=== PATIENT | male | born 1985 | race Caucasian/White ===

== ENCOUNTER 2021-03-27 10:25 | Emergency (ER) | payer MEDICARE, MEDICAID ==
[~2021-03-27] VITALS: Ht 172.7 cm; Wt 68.0 kg
--- NOTE | 2021-03-27 10:44 | PHYS DOC ---
General Adult EDM: Chief Complaint: PSYCH EVALUATION HPI: HPI: Patient is a 35-year-old male who presents to the emergency department in PD custody. PD reports that patient was standing in the middle of the road waving his hands when a bystander called 911. Patient was requesting to go to [facility] but was refused by [facility] for his behaviors. Patient has been not necessarily aggressive towards EMS staff but is displaying erratic behavior. Per PD patient has a history of methamphetamine and PCP use. Patient denies any drug or alcohol use. He states that he wants to go to [facility] for his med refill. Patient is unable to tell me what medications he takes and for what. Patient states that his medications were for the [facility] and [employer]. Patient is alert and oriented to person place and situation. Patient has no complaints at this time. Patient is displaying erratic behavior and flailing around in the ER bed. PT is still at patient's bedside and security was called to assist the nurse in obtaining vital signs as patient at times is uncooperative with care. Review of Systems: Review of Systems: 14 body systems of the review of systems have been reviewed. See HPI for pertinent positive and negative responses, otherwise all other systems are negative, nonpertinent or noncontributory Heart Score: C/O Chest Pain: No Risk Factors: Risk Factors: DM, Current or recent (<one month) smoker, HTN, HLP, family history of CAD, obesity. Risk Scores: Score 0 - 3: 2.5% MACE over next 6 weeks - Discharge Home Score 4 - 6: 20.3% MACE over next 6 weeks - Admit for Clinical Observation Score 7 - 10: 72.7% MACE over next 6 weeks - Early Invasive Strategies Physical Exam: PE: Constitutional: Well developed, well nourished, no acute distress, non-toxic appearance. [] HENT: Normocephalic, atraumatic, bilateral external ears normal, oropharynx moist, no oral exudates, nose normal. [] Eyes: PERRL, EOMI, conjunctiva normal, no discharge. [] Neck: Normal range of motion, no stridor Cardiovascular:Heart rate tachycardic rhythm, no murmur [] Lungs & Thorax: Bilateral breath sounds clear to auscultation [] Abdomen: Bowel sounds normal, soft, no tenderness, no masses, no pulsatile masses. [] Skin: Warm, dry, no erythema, no rash, scratches noted to right arm that appear to be older in nature, scattered papules noted to patient's back and arms. [] Back: Normal range of motion Extremities: No tenderness, no cyanosis, no clubbing, ROM intact, no edema. [] Neurologic: Alert and oriented X 3, normal motor function, normal sensory function, no focal deficits noted. [] Psychologic: Erratic behavior, somewhat uncooperative with care, requires redirection Current Patient Data: Labs: Laboratory Tests Test 03/27/21 12:20 White Blood Count 8.4 x10^3/uL Red Blood Count 4.42 x10^6/uL Hemoglobin 11.8 g/dL Hematocrit 36.0 % Mean Corpuscular Volume 81 fL Mean Corpuscular Hemoglobin 27 pg Mean Corpuscular Hemoglobin Concent 33 g/dL Red Cell Distribution Width 16.3 % Platelet Count 458 x10^3/uL Neutrophils (%) (Auto) 67 % Lymphocytes (%) (Auto) 21 % Monocytes (%) (Auto) 8 % Eosinophils (%) (Auto) 2 % Basophils (%) (Auto) 1 % Neutrophils # (Auto) 5.6 x10^3/uL Lymphocytes # (Auto) 1.8 x10^3/uL Monocytes # (Auto) 0.7 x10^3/uL Eosinophils # (Auto) 0.2 x10^3/uL Basophils # (Auto) 0.1 x10^3/uL Sodium Level 138 mmol/L Potassium Level 4.2 mmol/L Chloride Level 100 mmol/L Carbon Dioxide Level 26 mmol/L Anion Gap 12 Blood Urea Nitrogen 24 mg/dL Creatinine 0.7 mg/dL Estimated GFR (Cockcroft-Gault) 127.6 BUN/Creatinine Ratio 34 Glucose Level 99 mg/dL Calcium Level 8.8 mg/dL Total Bilirubin 0.2 mg/dL Aspartate Amino Transf (AST/SGOT) 43 U/L Alanine Aminotransferase (ALT/SGPT) 38 U/L Alkaline Phosphatase 92 U/L Total Protein 7.0 g/dL Albumin 3.3 g/dL Albumin/Globulin Ratio 0.9 Ethyl Alcohol Level < 10 mg/dL Current Medications Medications (Trade) Dose Ordered Sig/Larry Route PRN Reason Start Time Stop Time Status Last Admin Dose Admin Sodium Chloride 1,000 ml @ 1,000 mls/hr 1X ONCE IV 03/27/21 10:45 03/27/21 11:44 DC 03/27/21 12:22 Ziprasidone (Geodon Im) 20 mg 1X ONCE IM 03/27/21 11:00 03/27/21 11:01 DC 03/27/21 11:02 Ziprasidone (Geodon Im) 20 mg STK-MED ONCE IM 03/27/21 10:56 03/27/21 10:57 DC Lorazepam (Ativan Inj) 2 mg 1X ONCE IM 03/27/21 12:15 03/27/21 12:16 DC 03/27/21 12:22 EKG: EKG: [] Radiology/Procedures: Radiology/Procedures: [] Course & Med Decision Making: Course & Med Decision Making Pertinent Labs and Imaging studies reviewed. (See chart for details) [] Patient presents to the emergency department for medical clearance for RSI transfer. Patient has no complaints at this time but was picked up by PD for standing in the middle the road flailing his arms. Patient reports he was a good RSI for medication refill but is unsure the medications that he takes. Per PD patient has a history of methamphetamine and PCP abuse although he denies any drug use. Patient's vital signs are stable at this time but he continues to have erratic behavior and is resistant to care. Work-up in the ER consisted of blood work and urinalysis for medical clearance. Patient to be evaluated by the psychiatric assessment team. Patient continues to display aggressive and erratic behavior. Patient is not cooperating with questioning and will not allow nursing care. Due to patient's threatening behavior towards himself and nursing staff, Geodon was ordered for patient. 1209: Eddie ojeda called for patient as he became aggressive towards ER staff again, medications ordered. 1513: Psychiatric assessment team at patient's bedside, patient is sleeping following medications and is unable to be evaluated by the psychiatric assessment team. Patient will be continue to be held in the emergency department for sobering in order to be evaluated at a later time. Patient's lab work is unremarkable, his UDS was positive for methamphetamines. His vital signs continue to be stable. 1852: I discussed patient's case with Neelam with the psychiatric assessment team and she will come in to reevaluate patient. 2012 : Patient is alert and oriented x4, he is eating and drinking normally and able to ambulate. Patient was evaluated by Neelam with the psychiatric assessm ent team and patient's leather case finisher was contacted to follow-up with him. Patient is medically cleared and appropriate for discharge with follow-up with his leather case finisher. I discussed with patient all findings and diagnostic testing as well as the need to follow-up with PCP for further evaluation and treatment or return to the ER if any new or worsening symptoms. Strict return precautions were also discussed at length. Patient voiced understanding and agreement with the plan. Patient is hemodynamically stable at the time of disposition. Dragon Disclaimer: Graematter Disclaimer: This electronic medical record was generated, in whole or in part, using a voice recognition dictation system. Departure Departure Impression: Primary Impression: Methamphetamine abuse Additional Impression: Encounter for psychiatric assessment Disposition: 01 HOME / SELF CARE / HOMELESS Condition: GOOD Patient Instructions: Drug Abuse, FAQs Additional Instructions: You were seen in the emergency department today for a psychiatric evaluation and methamphetamine use. Your vital signs have been stable, your work-up in the ER was unremarkable. You were evaluated by member of our psychiatric assessment team. Your leather case finisher has been contacted and they will follow up with you outpatient. Please return to [facility] as needed. Please discontinue methamphetamine use. Please return to the emergency department if you develop suicidal or homicidal ideation, chest pain, shortness of breath, or any new or worsening concerns. CHELLY ELMORE LURE MAKER Mar 27, 2021 10:44
[2021-03-27] MEDS ORDERED: IV NORMAL SALINE 1000ML BAG 1,000 ML IV ONE (10:45)
[2021-03-27] MEDS ORDERED: ZIPRASIDONE IM 20 MG VIAL. IM ONE ×2 (10:56→11:00)
--- NOTE | 2021-03-27 11:33 | NUR ---
Pt startled awake and became agitated when this tech attempted to attach pt to blood pressure cuff. Lorna NORRIS notified this tech is unable to obtain a full set of vital signs.
[2021-03-27 12:36] LABS: BASO # 0.1 x10^3/uL (0.0-0.2); BASO % 1 % (0-3); EOS # 0.2 x10^3/uL (0.0-0.7); EOS % 2 % (0-3); HEMOGLOBIN 11.8 g/dL (13.0-17.5); LYMPH # 1.8 x10^3/uL (1.0-4.8); LYMPH % 21 % (24-48); MEAN CORPUSCULAR HEMOGLOBIN 27 pg (25-35); MEAN CORPUSCULAR HGB CONC 33 g/dL (31-37); MEAN CORPUSCULAR VOLUME 81 fL (79-100); MONO # 0.7 x10^3/uL (0.0-1.1); MONO % 8 % (0-9); NEUT # 5.6 x10^3/uL (1.8-7.7); NEUT % 67 % (31-73); PLATELET COUNT 458 x10^3/uL (140-400); RED BLOOD COUNT 4.42 x10^6/uL (4.30-5.70); RED CELL DISTRIBUTION WIDTH 16.3 % (11.5-14.5); WHITE BLOOD COUNT 8.4 x10^3/uL (4.0-11.0)
[2021-03-27 12:48] LABS: CALCIUM 8.8 mg/dL (8.5-10.1); CREATININE 0.7 mg/dL (0.7-1.3); GFR 127.6; POTASSIUM 4.2 mmol/L (3.5-5.1)
[2021-03-27 12:53] LABS: ALBUMIN 3.3 g/dL (3.4-5.0); ALBUMIN/GLOBULIN RATIO 0.9 (1.0-1.7); TOTAL BILIRUBIN 0.2 mg/dL (0.2-1.0)
[2021-03-27 15:18] LABS: BILIRUBIN,URINE NEGATIVE (NEG); CLARITY,URINE CLEAR; COLOR,URINE YELLOW; NITRITE,URINE NEGATIVE (NEG); PH,URINE 6.5 (<5.0-8.0); PROTEIN,URINE NEGATIVE (NEG-TRACE); UROBILINOGEN,URINE 0.2 mg/dL (0.2 mg/dL)
[2021-03-27 15:25] LABS: BARBITURATES NEG (NEG); BENZODIAZEPINES NEG (NEG); CANNABINOIDS NEG (NEG); COCAINE NEG (NEG); METHADONE NEG (NEG); OPIATES NEG (NEG); PHENCYCLIDINE NEG (NEG)
[2021-03-27 15:29] LABS: BACTERIA,URINE 0 /HPF (0-FEW); RBC,URINE 0 /HPF (0-2); WBC,URINE 0 /HPF (0-4)
[2021-03-27 15:39] LABS: AMPHETAMINE/METHAMPHETAMINE POS (NEG)
[2021-03-27 18:05] VITALS: BP 99/57
== END 2021-03-27 20:54 | disposition home or self-care (01) ==
LOC: ER 10:25
DX: F15.10 Other stimulant abuse, uncomplicated (principal); Z00.8 Encounter for other general examination
CPT/HCPCS: 36415; 80053; 80307; 81001; 85025; 96360; 96372; 99284; G0480; J2060; J3486; J7030

== ENCOUNTER 2021-06-13 01:21 | Emergency (ER) | payer MEDICAID, MEDICARE ==
[~2021-06-13] VITALS: Ht 182.9 cm; Wt 68.1 kg
--- NOTE | 2021-06-13 01:23 | PHYS DOC ---
Past Medical History Additional Past Medical Histor: drug abuse, mental illness (SHILOH HERNANDEZ DO) Past Surgical History: Other Additional Past Surgical Histo: unknown (SHILOH HERNANDEZ DO) Smoking Status: Current Every Day Smoker Alcohol Use: Heavy Drug Use: Methamphetamine (SHILOH HERNANDEZ DO) General Adult EDM: Chief Complaint: General Complaint HPI: HPI: Patient is a 35 year old male brought in by EMS for reported headache. He also reports having right earache. He asked me multiple times to look in both of his ears. The patient appears to be intoxicated, mildly agitated. He is angered when asked questions about use of illicit drugs or alcohol. The patient has a history of alcoholism and methamphetamine use. He also has a history of mental illness, insinuates that he has bipolar disorder. He has been out of his psychotropic medications for "a while." He denies any actual headache pain after he arrives. He denies dizziness, nausea vomiting, photophobia. Denies chest pain, dyspnea, abdominal pain or nausea vomiting symptoms. (SHILOH HERNANDEZ DO) Review of Systems: Review of Systems: Constitutional: Denies fever or chills. [] Eyes: Denies change in visual acuity or photophobia. Denies vision loss. HENT: Denies nasal congestion or sore throat. Right earache Respiratory: Denies cough or shortness of breath. [] Cardiovascular: Denies chest pain or edema. [] GI: Denies abdominal pain, nausea, vomiting Musculoskeletal: Denies back pain or joint pain. [] Integument: Denies rash. [] Neurologic: Reportedly had a headache earlier, denies it at present. Denies weakness, syncope, fall, head injury. Psychiatric: Anxiety, chronic mood disturbance, denies SI or HI (SHILOH HERNANDEZ DO) Heart Score: C/O Chest Pain: No Risk Factors: Risk Factors: DM, Current or recent (<one month) smoker, HTN, HLP, family history of CAD, obesity. Risk Scores: Score 0 - 3: 2.5% MACE over next 6 weeks - Discharge Home Score 4 - 6: 20.3% MACE over next 6 weeks - Admit for Clinical Observation Score 7 - 10: 72.7% MACE over next 6 weeks - Early Invasive Strategies (SHILOH HERNANDEZ DO) Allergies: Allergies: Allergies Coded Allergies Type Severity Reaction Last Updated Verified Unable to Assess 03/27/21 No (SHILOH HERNANDEZ DO) Physical Exam: PE: Constitutional: Well developed, well nourished, no acute distress, non-toxic appearance. Disheveled, unkempt, appears older than stated age HENT: Normocephalic, atraumatic, oropharynx is patent and clear, mucous membranes are moist. There is evidence of right external ear canal swelling, maceration. TM is clear. Pinna is unremarkable in appearance. No mastoid tenderness or erythema. Findings are most consistent with otitis externa. Left TM is clear, left external canal and left pinna are all normal in appearance. Extremely poor dentition. Eyes: PERRL, EOMI, conjunctiva normal, no discharge. [] Neck: Normal range of motion, no tenderness, supple, no stridor. [] Cardiovascular:Heart rate regular rhythm Lungs & Thorax: Bilateral breath sounds clear to auscultation [] Abdomen: Bowel sounds normal, soft, no tenderness, no masses, no pulsatile masses. [] Skin: Warm, dry, no erythema, no rash. Multiple tattoos. Extremities: No tenderness, no cyanosis, no clubbing, ROM intact, no edema. [] Neurologic: Alert and oriented X 3, normal motor function, normal sensory function, no focal deficits noted. Ambulates with a steady gait. Psychologic: Affect is bizarre, speech is pressured, he manifests some mild psychomotor agitation. He denies SI or HI. (SHILOH HERNANDEZ DO) EKG: EKG: [] (SHILOH HERNANDEZ DO) Radiology/Procedures: Radiology/Procedures: [] (SHILOH HERNANDEZ DO) Course & Med Decision Making: Course & Med Decision Making Pertinent Labs and Imaging studies reviewed. (See chart for details) The patient is given a dose of oral Ativan and oral Benadryl. He is resting comfortably. He is given Cortisporin otic drops for his right ear. He has thus far refused to provide a urine sample. I spoke with Fernando from the PAT team, and he is very familiar with this patient. The patient had been sober for some time, but he relapsed about a year ago and has been using alcohol and methamphetamine. The patient will be seen by the PAT team this morning. Transfer of care to Dr. Mullins for disposition. (SHILOH HERNANDEZ DO) Course & Med Decision Making Patient was signed over to me with mental health assessment pending and lab studies pending. Patient was medically cleared and then evaluated by behavioral health. Our mental health professionals do not believe that he is at immediate risk and can be treated on outpatient basis. I agree with this. Patient has a appropriate follow-up and is stable for discharge at this time. (VANEC MULLINS MD) Dragon Disclaimer: Dragon Disclaimer: This electronic medical record was generated, in whole or in part, using a voice recognition dictation system. (SHILOH HERNANDEZ DO) Departure Departure Impression: Primary Impression: Encounter for psychiatric assessment Additional Impressions: Methamphetamine abuse Mood disorder Right otitis externa Qualified Codes: H60.501 - Unspecified acute noninfective otitis externa, right ear Disposition: 01 HOME / SELF CARE / HOMELESS Condition: STABLE Referrals: NO PCP (PCP) Patient Instructions: Mood Disorders SHILOH HERNANDEZ DO Jun 13, 2021 01:23 VANCE MULLINS MD Jun 13, 2021 13:17
[2021-06-13] MEDS ORDERED: diphenhydrAMINE HCL 25 MG CAPSULE PO ONE (02:00)
[2021-06-13] MEDS ORDERED: NEOMYCIN/POLYMYXIN/HC OTIC SUSPENSION 10ML BOTTLE. AD ONE (02:00)
[2021-06-13 02:42] LABS: BASO # 0.1 x10^3/uL (0.0-0.2); BASO % 1 % (0-3); EOS # 0.3 x10^3/uL (0.0-0.7); EOS % 5 % (0-3); HEMATOCRIT 33.7 % (39.0-53.0); HEMOGLOBIN 11.4 g/dL (13.0-17.5); LYMPH # 1.6 x10^3/uL (1.0-4.8); LYMPH % 31 % (24-48); MEAN CORPUSCULAR HEMOGLOBIN 26 pg (25-35); MEAN CORPUSCULAR HGB CONC 34 g/dL (31-37); MEAN CORPUSCULAR VOLUME 77 fL (79-100); MONO # 0.6 x10^3/uL (0.0-1.1); MONO % 12 % (0-9); NEUT # 2.6 x10^3/uL (1.8-7.7); NEUT % 51 % (31-73); PLATELET COUNT 237 x10^3/uL (140-400); RED BLOOD COUNT 4.36 x10^6/uL (4.30-5.70); RED CELL DISTRIBUTION WIDTH 14.9 % (11.5-14.5); WHITE BLOOD COUNT 5.1 x10^3/uL (4.0-11.0)
[2021-06-13 02:51] LABS: CALCIUM 7.8 mg/dL (8.5-10.1); CREATININE 0.7 mg/dL (0.7-1.3); GFR 127.6
[2021-06-13 02:57] LABS: ACETAMIN 2.3 mcg/ml (10-30); ETHANOL < 10 mg/dL (0-10); SALIC 1.1 mg/dL (2.8-20.0)
[2021-06-13 09:57] LABS: COLOR,URINE YELLOW
[2021-06-13 09:58] LABS: BILIRUBIN,URINE NEGATIVE (NEG); CLARITY,URINE CLEAR; NITRITE,URINE NEGATIVE (NEG); PH,URINE 7.5 (<5.0-8.0); PROTEIN,URINE NEGATIVE (NEG-TRACE); UROBILINOGEN,URINE 0.2 mg/dL (0.2 mg/dL)
[2021-06-13 09:59] LABS: BACTERIA,URINE 0 /HPF (0-FEW)
[2021-06-13 10:03] LABS: BARBITURATES NEG (NEG); BENZODIAZEPINES NEG (NEG); CANNABINOIDS POS (NEG); COCAINE NEG (NEG); METHADONE NEG (NEG); OPIATES NEG (NEG); PHENCYCLIDINE NEG (NEG)
[2021-06-13 10:04] LABS: AMPHETAMINE/METHAMPHETAMINE NEG (NEG)
[2021-06-13 10:52] VITALS: BP 115/81
== END 2021-06-13 13:29 | disposition home or self-care (01) ==
LOC: ER 01:21
DX: H60.501 Unspecified acute noninfective otitis externa, right ear (principal); F15.10 Other stimulant abuse, uncomplicated; F39 Unspecified mood [affective] disorder; R51.9 Headache, unspecified; F17.200 Nicotine dependence, unspecified, uncomplicated
CPT/HCPCS: 36415; 80048; 80307; 80329; 81001; 85025; 99285; G0480; Q0163

== ENCOUNTER 2021-08-11 17:00 | Inpatient (IN) | payer MEDICARE ==
[~2021-08-11] VITALS: Ht 182.9 cm; Wt 78.1 kg
[2021-08-11] MEDS ORDERED: VANCOMYCIN 1 GM in IV NORMAL SALINE 250ML 250 ML IV ONE (22:00)
[2021-08-11] MEDS ORDERED: IV NORMAL SALINE 1000ML BAG 1,000 ML IV SCH ×2 (22:00→23:00)
[2021-08-11] MEDS ORDERED: PIPERACILLIN/TAZOBACTAM 3.375 GM in IV NORMAL SALINE 50ML 50 ML IV ONE (22:57)
[2021-08-11] MEDS ORDERED: DIPHTH,PERTUSS(ACELL),TET TOX 0.5 ML DISP.SYRIN. VAX IM ONE (22:57)
[2021-08-12] MEDS ORDERED: DIPHTH,PERTUSS(ACELL),TET TOX 0.5 ML DISP.SYRIN. VAX IM ONE (03:16)
--- NOTE | 2021-08-12 05:25 | RAD ---
STUDY: CT head without contrast INDICATION: Altered mental status. COMPARISON: None. TECHNIQUE: Axial CT imaging through the head without the use of intravenous contrast. Sagittal and co rajan reformats were obtained. One or more of the following individualized dose reduction techniques were utilized for this examinat ion: 1. Automated exposure control 2. Adjustment of the mA and/or kV according to patient size 3. Use of iterative reconstruction technique. FINDINGS: Apparent cortical/subcortical low-attenuation along the right frontal lobe but suspected to be artifa ctual based off of the reformatted images and presence of streak artifact. No acute intracranial hemo rrhage. No localized mass effect, midline shift or hydrocephalus. Intact calvarium. The visualized mastoid air cells and paranasal sinuses are normally aerated. IMPRESSION: The study is degraded by patient motion and angulation within the gantry. This is suspected to accoun t for apparent cortical/subcortical low-attenuation along portions of the right frontal lobe (image 2 3 series 8). It is recommended that a repeat CT be performed when the patient can be appropriately po sitioned and remain still especially if there is persistent alteration in mental status. Electronically signed by: AMAN CARROLL MD (08/12/2021 5:23 AM) [facility]
[2021-08-12 05:31] VITALS: BP 114/63
--- NOTE | 2021-08-12 05:40 | NUR ---
Pt admitted to rm [id number] from ER. Pt only A, O to self and becomes very agitated if you try to wake him up to ask him questions. Unable to complete most admission assessments due to altered mental status at this time. Pt was incont of urine upon admission. Changed pt into pull up brief and changed linens after some agitation. Pt refusing to wear a gown at this time. Bed alarm on. Call light within reach. Will monitor.
[2021-08-12 07:00] VITALS: BP 107/55
[2021-08-12 07:06] LABS: BASO # 0.1 x10^3/uL (0.0-0.2); BASO % 1 % (0-3); EOS # 0.3 x10^3/uL (0.0-0.7); EOS % 5 % (0-3); HEMATOCRIT 34.1 % (39.0-53.0); HEMOGLOBIN 11.5 g/dL (13.0-17.5); LYMPH # 1.9 x10^3/uL (1.0-4.8); LYMPH % 31 % (24-48); MEAN CORPUSCULAR HEMOGLOBIN 27 pg (25-35); MEAN CORPUSCULAR HGB CONC 34 g/dL (31-37); MEAN CORPUSCULAR VOLUME 79 fL (79-100); MONO # 0.6 x10^3/uL (0.0-1.1); MONO % 10 % (0-9); NEUT # 3.4 x10^3/uL (1.8-7.7); NEUT % 54 % (31-73); PLATELET COUNT 251 x10^3/uL (140-400); RED CELL DISTRIBUTION WIDTH 15.7 % (11.5-14.5); WHITE BLOOD COUNT 6.3 x10^3/uL (4.0-11.0)
[2021-08-12 07:08] LABS: % EOS 5 % (0-5); % LYMPHS 31 % (24-48); % MONOS 10 % (0-10); % SEGS 54 % (35-66); PLT ESTIMATE ADEQUATE (ADEQUATE)
[2021-08-12 08:17] LABS: ALBUMIN 3.1 g/dL (3.4-5.0); ALBUMIN/GLOBULIN RATIO 0.9 (1.0-1.7); CALCIUM 8.4 mg/dL (8.5-10.1); CREATININE 0.7 mg/dL (0.7-1.3); GFR 126.9; MAGNESIUM 2.2 mg/dL (1.8-2.4); TOTAL BILIRUBIN 0.1 mg/dL (0.2-1.0); TOTAL PROTEIN 6.4 g/dL (6.4-8.2)
[2021-08-12 11:00] VITALS: BP 97/52
--- NOTE | 2021-08-12 11:00 | RAD ---
EXAMINATION: US BILATERAL LOWEREXTREMITY VENOUS DOPPLER, 08/11/2021 11:30 PM CLINICAL INDICATION: Cellulitis, abscess disease COMPARISON: None Available. PROCEDURE: Multiple grayscale, color Doppler and spectral Doppler sonographic images of the bilateral lower extremities were obtained. FINDINGS: There is no evidence of deep venous thrombosis in either lower extremity. The bilateral com mon femoral, femoral and popliteal veins are echolucent with normal flow on color Doppler imaging. Th e veins are fully compressible and show normal phasicity and reaction to augmentation. Visualized keira f veins are also normal in appearance. IMPRESSION: No evidence of deep venous thrombosis in either lower extremity. Electronically signed by: Clary Wagn MD (08/12/2021 10:58 AM) [id number]
--- NOTE | 2021-08-12 11:15 | NUR ---
pt sleeping this morning, woke up about 1100, bed alarm going off, pt sat back in bed agitated that we are in room, pt brief and edwige saturated in urine, informed pt that he was covered in urine and this RN is trying to remove wet stuff, he then realized that he had been incontinent and got angry. Pt speech very garbled. Pt escorted to bathroom, informed him that we needed a urine sample, he proceeded to urinate all over the wall and floor and then some in the toilet and would not give urine sample. Attempted to place new brief on pt, he refused and ambulated back to bed naked and went back to sleep. Bed alarm once again set
--- NOTE | 2021-08-12 11:16 | PDOC1 ---
History and Physical Date of Admission Date of Admission DATE: 08/12/21 TIME: 11:04 Identification/Chief Complaint Chief Complaint Abscess/cellulitis Source Source: Chart review History of Present Illness History of Present Illness Patient is a 36-year-old male with past medical history IV drug use, who presents to the ED with complaints of abscess to left dorsal wrist. History is limited due to uncooperative patient. At the time my evaluation he is very somnolent and not answering questions. Reportedly patient took 5 mg of Ativan before coming to the ED last night. Unknown length of time that his abscess has been present. In the ED he was treated with IV Zosyn and IV vancomycin. His labs on admission showed WBC 6.3, hemoglobin 11.5, hematocrit 34.1, AST 57, ALT 51. Urine toxicology showed ethyl alcohol 83. Imaging in the ED was largely unrevealing. He has an x-ray of the left arm with official read still pending. He has been admitted for further medical management. Past Medical History Past Medical History History IV drug use Past Surgical History Past Surgical History Unable to obtain due to uncooperative patient Family History Family History Unable to be obtained due to uncooperative patient Social History Smoke: 1 pack per day ALCOHOL: occassional Drugs: Crystal meth Current Problem List Problem List Problems Medical Problems: (1) Altered mental status Status: Acute (2) Cellulitis Status: Acute Current Medications Current Medications Current Medications Diphtheria/ Tetanus/Acell Pertussis (Boostrix) 0.5 ml STK-MED ONCE VAX IM ; Start 08/12/21 at 03:16; Stop 08/12/21 at 03:16; Status DC Sodium Chloride 1,000 ml @ 1,000 mls/hr Q1H IV ; Start 08/11/21 at 22:00; Stop 08/12/21 at 03:59; Status DC Sodium Chloride 1,000 ml @ 1,000 mls/hr Q1H IV ; Start 08/11/21 at 23:00; Stop 08/12/21 at 03:59; Status DC Vancomycin HCl 1 gm/Sodium Chloride 250 ml @ 250 mls/hr ONCE ONCE IV ; Start 08/11/21 at 22:00; Stop 08/12/21 at 03:59; Status DC Piperacillin Sod/ Tazobactam Sod 3.375 gm/Sodium Chloride 50 ml @ 100 mls/hr ONCE ONCE IV ; Start 08/11/21 at 22:57; Stop 08/12/21 at 04:01; Status DC Diphtheria/ Tetanus/Acell Pertussis (Boostrix) 0.5 ml ONCE ONCE VAX IM ; Start 08/11/21 at 22:57; Stop 08/12/21 at 04:01; Status DC Allergies Allergies: Coded Allergies: No Known Drug Allergies (Unverified , 06/13/21) ROS Review of System Unable to be obtained due to uncooperative patient Physical Exam Physical Exam General: Very lethargic, uncooperative. No acute distress HEENT: PERRLA, EOMI Lungs: Normal air movement Heart: RRR, no murmurs Cardiovascular: S1, S2 Abdomen: Normal bowel sounds, Soft, no masses Extremities: No clubbing, No cyanosis Skin: Roughly 3 cm abscess to left dorsal wrist, with surrounding erythema. Neuro: Normal speech, Normal tone, Sensation intact Psych/Mental Status: Still very somnolent Vitals Vitals Vital Signs Date Time Temp Pulse Resp B/P (MAP) Pulse Ox O2 Delivery O2 Flow Rate FiO2 08/12/21 08:00 Room Air 08/12/21 07:00 98.1 97 18 107/55 (72) 95 98.1 Labs Labs Laboratory Tests Test 08/11/21 23:00 08/12/21 01:15 Sodium Level 138 mmol/L (136-145) Potassium Level 4.0 mmol/L (3.5-5.1) Chloride Level 104 mmol/L (98-107) Carbon Dioxide Level 26 mmol/L (21-32) Anion Gap 8 (6-14) Blood Urea Nitrogen 13 mg/dL (8-26) Creatinine 0.7 mg/dL (0.7-1.3) Estimated GFR (Cockcroft-Gault) 126.9 BUN/Creatinine Ratio 19 (6-20) Glucose Level 103 mg/dL (70-99) Lactic Acid Level 1.9 mmol/L (0.4-2.0) Calcium Level 8.4 mg/dL (8.5-10.1) Magnesium Level 2.2 mg/dL (1.8-2.4) Total Bilirubin 0.1 mg/dL (0.2-1.0) Aspartate Amino Transf (AST/SGOT) 57 U/L (15-37) Alanine Aminotransferase (ALT/SGPT) 51 U/L (16-63) Alkaline Phosphatase 66 U/L (46-116) Troponin I High Sensitivity 5 ng/L (4-75) Total Protein 6.4 g/dL (6.4-8.2) Albumin 3.1 g/dL (3.4-5.0) Albumin/Globulin Ratio 0.9 (1.0-1.7) Ethyl Alcohol Level 83 mg/dL (0-10) White Blood Count 6.3 x10^3/uL (4.0-11.0) Red Blood Count 4.30 x10^6/uL (4.30-5.70) Hemoglobin 11.5 g/dL (13.0-17.5) Hematocrit 34.1 % (39.0-53.0) Mean Corpuscular Volume 79 fL (79-100) Mean Corpuscular Hemoglobin 27 pg (25-35) Mean Corpuscular Hemoglobin Concent 34 g/dL (31-37) Red Cell Distribution Width 15.7 % (11.5-14.5) Platelet Count 251 x10^3/uL (140-400) Neutrophils (%) (Auto) 54 % (31-73) Lymphocytes (%) (Auto) 31 % (24-48) Monocytes (%) (Auto) 10 % (0-9) Eosinophils (%) (Auto) 5 % (0-3) Basophils (%) (Auto) 1 % (0-3) Neutrophils # (Auto) 3.4 x10^3/uL (1.8-7.7) Lymphocytes # (Auto) 1.9 x10^3/uL (1.0-4.8) Monocytes # (Auto) 0.6 x10^3/uL (0.0-1.1) Eosinophils # (Auto) 0.3 x10^3/uL (0.0-0.7) Basophils # (Auto) 0.1 x10^3/uL (0.0-0.2) Segmented Neutrophils % 54 % (35-66) Lymphocytes % 31 % (24-48) Monocytes % 10 % (0-10) Eosinophils % 5 % (0-5) Platelet Estimate Adequate (ADEQUATE) Laboratory Tests Test 08/11/21 23:00 08/12/21 01:15 Sodium Level 138 mmol/L (136-145) Potassium Level 4.0 mmol/L (3.5-5.1) Chloride Level 104 mmol/L (98-107) Carbon Dioxide Level 26 mmol/L (21-32) Anion Gap 8 (6-14) Blood Urea Nitrogen 13 mg/dL (8-26) Creatinine 0.7 mg/dL (0.7-1.3) Estimated GFR (Cockcroft-Gault) 126.9 BUN/Creatinine Ratio 19 (6-20) Glucose Level 103 mg/dL (70-99) Lactic Acid Level 1.9 mmol/L (0.4-2.0) Calcium Level 8.4 mg/dL (8.5-10.1) Magnesium Level 2.2 mg/dL (1.8-2.4) Total Bilirubin 0.1 mg/dL (0.2-1.0) Aspartate Amino Transf (AST/SGOT) 57 U/L (15-37) Alanine Aminotransferase (ALT/SGPT) 51 U/L (16-63) Alkaline Phosphatase 66 U/L (46-116) Troponin I High Sensitivity 5 ng/L (4-75) Total Protein 6.4 g/dL (6.4-8.2) Albumin 3.1 g/dL (3.4-5.0) Albumin/Globulin Ratio 0.9 (1.0-1.7) Ethyl Alcohol Level 83 mg/dL (0-10) White Blood Count 6.3 x10^3/uL (4.0-11.0) Red Blood Count 4.30 x10^6/uL (4.30-5.70) Hemoglobin 11.5 g/dL (13.0-17.5) Hematocrit 34.1 % (39.0-53.0) Mean Corpuscular Volume 79 fL (79-100) Mean Corpuscular Hemoglobin 27 pg (25-35) Mean Corpuscular Hemoglobin Concent 34 g/dL (31-37) Red Cell Distribution Width 15.7 % (11.5-14.5) Platelet Count 251 x10^3/uL (140-400) Neutrophils (%) (Auto) 54 % (31-73) Lymphocytes (%) (Auto) 31 % (24-48) Monocytes (%) (Auto) 10 % (0-9) Eosinophils (%) (Auto) 5 % (0-3) Basophils (%) (Auto) 1 % (0-3) Neutrophils # (Auto) 3.4 x10^3/uL (1.8-7.7) Lymphocytes # (Auto) 1.9 x10^3/uL (1.0-4.8) Monocytes # (Auto) 0.6 x10^3/uL (0.0-1.1) Eosinophils # (Auto) 0.3 x10^3/uL (0.0-0.7) Basophils # (Auto) 0.1 x10^3/uL (0.0-0.2) Segmented Neutrophils % 54 % (35-66) Lymphocytes % 31 % (24-48) Monocytes % 10 % (0-10) Eosinophils % 5 % (0-5) Platelet Estimate Adequate (ADEQUATE) VTE Prophylaxis Ordered VTE Prophylaxis Devices: Yes VTE Pharmacological Prophylaxi: No Assessment/Plan Assessment/Plan Abscess left wrist with surrounding cellulitis History of methamphetamine use Plan: Will consult general surgery to perform I&D No information of failed outpatient antibiotics. After I&D may discharge home on p.o. Bactrim. Consultation placed to ID FEN - Regular diet PPX - SCDs FULL CODE Dispo - inpatient for above Justifications for Admission Other Justification HEIDI GARCIA MD Aug 12, 2021 11:16
[2021-08-12] MEDS ORDERED: VANCOMYCIN PER PHARMACY MC PRN (13:00)
[2021-08-12] MEDS: HEPARIN for SUB-Q USE 5,000 UNIT/ML VIAL. SQ SCH ×2 (14:00→22:00)
[2021-08-12] MEDS ORDERED: VANCOMYCIN 2 GM in IV NORMAL SALINE 500ML BAG 500 ML IV ONE (14:00)
[2021-08-12 15:00] VITALS: BP 102/57
--- NOTE | 2021-08-12 15:49 | NUR ---
PT UP, STANDING IN DOORWAY CRYING, ASKED WHAT HE NEEDED, HE SAID NOTHING AND TO LEAVE HIM ALONE. PT WANDERING IN [place]ESLIE, ASKED TO RETURN TO ROOM HE HAD NO MASK ON. PT STANDING IN DOOR AGAIN, CRYING, WANTING SOMETHING TO EAT, WHEN ASKED WHAT HE WANTED HE CRIED AND SAID TURKEY. MEAL TRAY ORDERED. PT STANDING IN DOOR LATER, WANTING SNACK, PEANUT BUTTER AND CRACKERS GIVEN. PT CRYING STATING THAT ABSCESS HURTS, INFORMED HIM HE HAS AN ANTIBIOTIC DUE THAT WILL HELP WITH THAT. HE REFUSED, STATED HE NEEDED TO SLEEP FIRST, TOLD HIM WE COULD DO IT WHILE HE SLEPT, HE SAID NO AND SHUT DOOR.
--- NOTE | 2021-08-12 17:06 | PDOC ---
Infectious Disease Note Vital Signs: Vital Signs Vital Signs Date Time Temp Pulse Resp B/P (MAP) Pulse Ox O2 Delivery O2 Flow Rate FiO2 08/12/21 15:00 98.0 92 18 102/57 (72) 97 Room Air 98.0 Medications: Inpatient Meds: Medications reviewed. Labs: Lab Laboratory Tests Test 08/11/21 23:00 08/12/21 01:15 Sodium Level 138 mmol/L (136-145) Potassium Level 4.0 mmol/L (3.5-5.1) Chloride Level 104 mmol/L (98-107) Carbon Dioxide Level 26 mmol/L (21-32) Anion Gap 8 (6-14) Blood Urea Nitrogen 13 mg/dL (8-26) Creatinine 0.7 mg/dL (0.7-1.3) Estimated GFR (Cockcroft-Gault) 126.9 BUN/Creatinine Ratio 19 (6-20) Glucose Level 103 mg/dL (70-99) Lactic Acid Level 1.9 mmol/L (0.4-2.0) Calcium Level 8.4 mg/dL (8.5-10.1) Magnesium Level 2.2 mg/dL (1.8-2.4) Total Bilirubin 0.1 mg/dL (0.2-1.0) Aspartate Amino Transf (AST/SGOT) 57 U/L (15-37) Alanine Aminotransferase (ALT/SGPT) 51 U/L (16-63) Alkaline Phosphatase 66 U/L (46-116) Troponin I High Sensitivity 5 ng/L (4-75) Total Protein 6.4 g/dL (6.4-8.2) Albumin 3.1 g/dL (3.4-5.0) Albumin/Globulin Ratio 0.9 (1.0-1.7) Ethyl Alcohol Level 83 mg/dL (0-10) White Blood Count 6.3 x10^3/uL (4.0-11.0) Red Blood Count 4.30 x10^6/uL (4.30-5.70) Hemoglobin 11.5 g/dL (13.0-17.5) Hematocrit 34.1 % (39.0-53.0) Mean Corpuscular Volume 79 fL (79-100) Mean Corpuscular Hemoglobin 27 pg (25-35) Mean Corpuscular Hemoglobin Concent 34 g/dL (31-37) Red Cell Distribution Width 15.7 % (11.5-14.5) Platelet Count 251 x10^3/uL (140-400) Neutrophils (%) (Auto) 54 % (31-73) Lymphocytes (%) (Auto) 31 % (24-48) Monocytes (%) (Auto) 10 % (0-9) Eosinophils (%) (Auto) 5 % (0-3) Basophils (%) (Auto) 1 % (0-3) Neutrophils # (Auto) 3.4 x10^3/uL (1.8-7.7) Lymphocytes # (Auto) 1.9 x10^3/uL (1.0-4.8) Monocytes # (Auto) 0.6 x10^3/uL (0.0-1.1) Eosinophils # (Auto) 0.3 x10^3/uL (0.0-0.7) Basophils # (Auto) 0.1 x10^3/uL (0.0-0.2) Segmented Neutrophils % 54 % (35-66) Lymphocytes % 31 % (24-48) Monocytes % 10 % (0-10) Eosinophils % 5 % (0-5) Platelet Estimate Adequate (ADEQUATE) Objective: Assessment: Patient seen and examined ID consult dictated Left forearm abscess Left upper extremity cellulitis IVDU Unkempt History of alcohol dependence History of smoking Noncompliance Plan: Plan of Care DC IV vancomycin as patient is refusing the same Received IV Vanco and Zosyn in ED start linezolid Patient will need I&D Continue local wound care Continue supportive care Maintain aspiration precautions Thank you [id number] A[address] AQUINO MD Aug 12, 2021 17:06
--- NOTE | 2021-08-12 17:40 | NUR ---
PT WAS TRANSFERRED TO ROOM 426, REPORT WAS GIVEN TO KRIS
--- NOTE | 2021-08-12 17:53 | CONS ---
DATE OF CONSULTATION: 08/12/2021 REFERRING PHYSICIAN: Dr. Rubio. REASON FOR CONSULTATION: Left dorsal forearm abscess, antibiotic management. HISTORY OF PRESENT ILLNESS: A 36-year-old male with history of IVDU, presented to the ER with cellulitis, left upper extremity. History is limited as the patient is uncooperative. During my assessment, he remains somnolent. Does not answer any questions. He was afebrile. White count was normal. Hemoglobin was 8.5. Creatinine was 0.7. ETOH level of 83. Lower extremity ultrasound did not show any evidence of DVT. Head CT did not show any evidence of acute intracranial process. Tibia, fibula x-rays pending at this time. The patient received 1 dose of Zosyn and vancomycin. Currently, he is on IV vancomycin. ID consultation has been requested for antibiotic management. General Surgery is consulted. They have referred his care to Ortho. Ortho was consulted. The patient is currently on IV vancomycin. PAST MEDICAL HISTORY: Mood disorder, history of IVDU. FAMILY HISTORY: Unable to obtain as the patient is uncooperative. FAMILY HISTORY: Unable to obtain as the patient is uncooperative. SOCIAL HISTORY: One pack of cigarettes a day. ETOH, occasional. Crystal meth. CURRENT MEDICATIONS: IV vancomycin, status post one dose of Zosyn. ALLERGIES: No known drug allergies. REVIEW OF SYSTEMS: Unable to obtain as the patient remains uncooperative. PHYSICAL EXAMINATION: GENERAL: Drowsy, but arousable male, does not answer most of the questions, in no acute distress. VITAL SIGNS: Temperature 98.0, pulse 92, respiratory rate 18, blood pressure 102/57, oxygen saturation 97% on room air. GENERAL: Well-developed, well-nourished male, lying in bed comfortably, in no acute distress, on room air. HEENT: Normocephalic and atraumatic. Anicteric. Pupils equal, reactive. Extraocular movements intact, not open his mouth for oral exam. NECK: Supple. LUNGS: Clear. HEART: S1, S2. No murmurs. ABDOMEN: Soft, nontender, nondistended. EXTREMITIES: No cyanosis, no clubbing. Left upper extremity swelling, pus pointing abscess on the left lateral dorsal forearm with surrounding erythema and tender. NEUROLOGIC: Drowsy, but arousable, moves all 4 extremities. PSYCHIATRIC: Somnolent, not cooperative. LABORATORY DATA: WBC 6.3, hemoglobin 11.5, hematocrit 34.1, platelets 251. Sodium 138, potassium 4.0, chloride 104, bicarbonate 26, BUN 13, creatinine 0.7, glucose 103. Lactate 1.9. Total bilirubin less than 1. AST 57, albumin 3.1. Ethyl alcohol 83. IMAGIN. Left upper extremity ultrasound negative for DVT. 2. Head CT as above. 3. Tibia, fibula x-ray pending. IMPRESSION: 1. Left forearm abscess and cellulitis, likely from IV drug use. 2. History of IV drug use. 3. Psych disorder. 4. Left upper extremity cellulitis. 5. Noncompliance. RECOMMENDATIONS: 1. The patient will need I and D. 2. Discontinue IV vancomycin as he is refusing for the same. 3. Start p.o. Zyvox for now. 4. Monitor labs and cultures including blood cultures. 5. Continue supportive care. 6. Maintain aspiration precautions. Thank you for allowing me to participate in this patient's care. Discussed with nursing staff. RUTH DR: Javid TID: [id number] MTDD
[2021-08-12 19:59] VITALS: BP 96/61
[2021-08-12] MEDS: LINEZOLID 600 MG TABLET PO SCH (21:00)
[2021-08-12] MEDS: LACTOBACILLUS RHAMNOSUS GG 1 CAPSULE. PO SCH (21:00)
[2021-08-12] MEDS ORDERED: VANCOMYCIN 1.25 GM in IV NORMAL SALINE 250ML 250 ML IV SCH (22:00)
[2021-08-12 22:52] VITALS: BP 112/61
--- NOTE | 2021-08-13 05:51 | NUR ---
During the first half of shift, Pt refused assessments and all medications yelling for nurse to get out of room. At approximately 0145am pt came stumbling out of his room and shouting for Ativan. Dr. Medeiros was notified and CIWA orders put in. After pt was given 4mg of Lorazepam he stayed in his room and slept. At 0300 when VAMP STITCHER attempted to take his vital signs he told her "I'm sick of you molesting me". VAMP STITCHER then left the room and notified nsg. 0545 pt came out of his room and tried to leave the unit. Gait was very unsteady and he stated that he was going to the "activity room" Pt then went into the wrong patient room but was guided back to his own room by nsg. Pt then ate 2 sandwich boxes. CIWA assessment done and Lorazepam given. Pt attempted to eat the medicine cup. Silverware and small plastic items were removed from bedside. Will continue to monitor.
[2021-08-13] MEDS: HEPARIN for SUB-Q USE 5,000 UNIT/ML VIAL. SQ SCH ×3 (06:00→21:37)
[2021-08-13] MEDS ORDERED: ZIPRASIDONE IM 20 MG VIAL. IM ONE ×2 (10:30→17:30)
--- NOTE | 2021-08-13 10:32 | NUR ---
Patient urinated all over floor. Patient has been redirected multiple times. Patients behaviors are revving and getting agitated. Called, orders received.
--- NOTE | 2021-08-13 10:50 | PDOC ---
[employer] PROGRESS NOTE Date of Service DOS: DATE: 08/13/21 TIME: 10:46 Chief Complaint Chief Complaint Abscess left wrist with surrounding cellulitis Polysubstance abuse History of methamphetamine use History of alcohol abuse Plan: General surgery refusing to do surgery around extremity area. Concern is that the abscess is near the joint where the infection could be undermining more than what is seen superficially at therefore may get into more sensitive areas such as joint or her facial planes. Plastic surgery consulted No information of failed outpatient antibiotics. After I&D may discharge home on p.o. Bactrim. ID recommends continue with p.o. Zyvox and I&D Continue CIWA protocol FEN - Regular diet PPX - SCDs FULL CODE Dispo - inpatient for above History of Present Illness History of Present Illness 36-year-old male with past medical history IV drug use, who presents to the ED with complaints of abscess to left dorsal wrist. History is limited due to uncooperative patient. At the time my evaluation he is very somnolent and not answering questions. Reportedly patient took 5 mg of Ativan before coming to the ED last night. Unknown length of time that his abscess has been present. In the ED he was treated with IV Zosyn and IV vancomycin. His labs on admission showed WBC 6.3, hemoglobin 11.5, hematocrit 34.1, AST 57, ALT 51. Urine toxicology showed ethyl alcohol 83. Imaging in the ED was largely unrevealing. He has an x-ray of the left arm with official read still pending. He has been admitted for further medical management. 08/13/2021 No acute events overnight. Patient seen examined bedside. AF and VSS. Nurse helped with showering this morning. Returned back to bed and sleeping. Easily arousable. Difficult to redirect. Nurse reported that patient was playing on the floor. Crawling out of bed and trying to leave the room. Patient is an elopement risk. One-time Geodon given for agitation. Patient's chart, labs, images were reviewed and discussed with RN Vitals/I&O Vitals/I&O: Vital Signs Date Time Temp Pulse Resp B/P (MAP) Pulse Ox O2 Delivery O2 Flow Rate FiO2 08/13/21 08:00 Room Air 08/12/21 22:52 112/61 (78) 08/12/21 15:00 98.0 92 18 97 98.0 I & O 08/12/21 08/12/21 08/13/21 15:00 23:00 07:00 Intake Total 240 ml 0 ml 500 ml Balance 240 ml 0 ml 500 ml Physical Exam General: Alert, Cooperative Heart: Regular rate Extremities: Other (Left forearm abscess of about 3 x 3 cm with circumferential erythema extending up to the wrist and elbow. Full range of motion) Assessment and Plan Assessmemt and Plan Problems Medical Problems: (1) Altered mental status Status: Acute (2) Cellulitis Status: Acute Comment Review of Relevant I have reviewed the following items kavitha (where applicable) has been applied. Medications: Current Medications Medications (Trade) Dose Ordered Sig/Larry Route PRN Reason Start Time Stop Time Status Last Admin Dose Admin Vancomycin HCl (Vanco Per Pharmacy) 1 each PRN DAILY PRN MC SEE COMMENTS 08/12/21 13:00 08/12/21 17:06 DC 08/12/21 13:25 Lorazepam (Ativan) 4 mg PRN Q1HR PRN PO For CIWA 8-14 08/13/21 02:00 08/13/21 02:16 Lorazepam (Ativan) 8 mg PRN Q1HR PRN PO For CIWA 15 or greater 08/13/21 02:00 08/13/21 05:47 Ziprasidone (Geodon Im) 10 mg 1X ONCE IM 08/13/21 10:30 08/13/21 10:33 DC 08/13/21 10:44 Justifications for Admission Other Justification PATITO WALKER MD August 13, 2021 10:50
[2021-08-13] MEDS: LACTOBACILLUS RHAMNOSUS GG 1 CAPSULE. PO SCH ×2 (10:56→21:30)
[2021-08-13] MEDS: LINEZOLID 600 MG TABLET PO SCH ×2 (10:56→21:30)
[2021-08-13 11:00] VITALS: BP 102/58
--- NOTE | 2021-08-13 12:35 | PDOC ---
Infectious Disease Note Subjective: Subjective Patient drowsy, arousable, does not answer any questions, Discussed with nursing staff Vital Signs: Vital Signs Vital Signs Date Time Temp Pulse Resp B/P (MAP) Pulse Ox O2 Delivery O2 Flow Rate FiO2 08/13/21 11:00 86 102/58 (73) 98 08/13/21 08:00 Room Air 08/12/21 15:00 98.0 18 98.0 Physical Exam: PHYSICAL EXAM GENERAL: Drowsy,arousable male, does not answer most of the questions, in no acute distress. HEENT: Normocephalic and atraumatic. Anicteric. Pupils equal, reactive. Extraocular movements intact, not open his mouth for oral exam. NECK: Supple. LUNGS: Clear. HEART: S1, S2. No murmurs. ABDOMEN: Soft, nontender, nondistended. EXTREMITIES: No cyanosis, no clubbing. Left upper extremity swelling, pus pointing abscess on the left lateral dorsal forearm with surrounding erythema and tenderness. NEUROLOGIC: Drowsy, but arousable, moves all 4 extremities. PSYCHIATRIC: Somnolent, not cooperative. Medications: Inpatient Meds: Medications reviewed. Objective: Assessment: Gram neg bacteremia POA Left forearm abscess Left upper extremity cellulitis IVDU Unkempt History of alcohol dependence History of smoking Noncompliance Plan: Plan of Care Cont linezolid Start Zosyn Patient will need I&D, Gen surgery and Ortho consulted Continue local wound care Continue supportive care Maintain aspiration precautions Discussed with nursing staff AVE AQUINO MD August 13, 2021 12:35
[2021-08-13] MEDS: PIPERACILLIN/TAZOBACTAM 3.375 GM in IV NORMAL SALINE 50ML 50 ML IV SCH ×2 (13:40→19:02)
[2021-08-13 15:00] VITALS: BP 109/53
[2021-08-13 19:00] VITALS: BP 114/64
[2021-08-13] MEDS ORDERED: LACTOBACILLUS RHAMNOSUS GG 1 CAPSULE. PO SCH (21:00)
[2021-08-13] MEDS: BENZTROPINE MESYLATE 1 MG TABLET. PO SCH (21:29)
[2021-08-13] MEDS: traZODone 100 MG TABLET. PO SCH (21:30)
[2021-08-13 23:29] LABS: BARBITURATES NEG (NEG); BENZODIAZEPINES NEG (NEG); CANNABINOIDS NEG (NEG); COCAINE NEG (NEG); METHADONE NEG (NEG); OPIATES NEG (NEG); PHENCYCLIDINE NEG (NEG)
[2021-08-13 23:33] LABS: AMPHETAMINE/METHAMPHETAMINE NEG (NEG)
[2021-08-13 23:52] LABS: BACTERIA,URINE 0 /HPF (0-FEW); RBC,URINE 0 /HPF (0-2); WBC,URINE 0 /HPF (0-4)
[2021-08-14] MEDS: PIPERACILLIN/TAZOBACTAM 3.375 GM in IV NORMAL SALINE 50ML 50 ML IV SCH ×6 (01:20→18:00)
[2021-08-14] MEDS: HEPARIN for SUB-Q USE 5,000 UNIT/ML VIAL. SQ SCH ×3 (06:00→19:45)
[2021-08-14 07:00] VITALS: BP 113/51
--- NOTE | 2021-08-14 07:30 | RAD ---
2 view bilateral tibia fibula HISTORY: Cellulitis possible abscess possible foreign body such as a needle AP lateral views were obtained of the tibia and fibula bilaterally The visualized osseous structures appear normal. There is no radiopaque foreign body. IMPRESSION: No acute findings. Electronically signed by: Nikolay Nava III, MD (08/14/2021 7:28 AM) [facility]
[2021-08-14] MEDS: BENZTROPINE MESYLATE 1 MG TABLET. PO SCH ×2 (08:21→19:38)
[2021-08-14] MEDS: LINEZOLID 600 MG TABLET PO SCH ×2 (08:21→19:38)
[2021-08-14] MEDS: LACTOBACILLUS RHAMNOSUS GG 1 CAPSULE. PO SCH ×2 (08:21→19:38)
--- NOTE | 2021-08-14 10:19 | NUR ---
pt pacing room, difficult to re-direct to sit back in bed or chair. pt continuously asking for more food, a third tray ordered for pt.
--- NOTE | 2021-08-14 12:07 | PDOC ---
Infectious Disease Note Subjective: Subjective Patient more alert this morning but still confused Discussed with RN Refuses most of the treatment Remains noncompliant Fidgety Vital Signs: Vital Signs Vital Signs Date Time Temp Pulse Resp B/P (MAP) Pulse Ox O2 Delivery O2 Flow Rate FiO2 08/14/21 08:00 Room Air 08/14/21 07:00 98.0 112 18 113/51 (71) 97 98.0 Physical Exam: PHYSICAL EXAM GENERAL: Alert awake male in no acute distress ambulating in the hallway somewhat confused HEENT: Normocephalic and atraumatic. Anicteric. Pupils equal, reactive. Extraocular movements intact, not open his mouth for oral exam. NECK: Supple. LUNGS: Clear. HEART: S1, S2. No murmurs. ABDOMEN: Soft, nontender, nondistended. EXTREMITIES: No cyanosis, no clubbing. Left upper extremity dressing in place intact not taken down NEUROLOGIC: Alert awake male in no acute distress somewhat confused PSYCHIATRIC: Somnolent, not cooperative. Medications: Inpatient Meds: Medications reviewed. Labs: Lab Laboratory Tests Test 08/13/21 23:00 Urine Collection Type Unknown Urine Color (Auto) Colorless Urine Turbidity Clear Urine pH (Auto) 6.0 (<5.0-8.0) Urine Specific Carlton 1.006 (1.000-1.030) Urine Protein (Auto) Negative mg/dL (Negative) Urine Glucose (Auto)(UA) Negative mg/dL (Negative) Urine Ketones (Auto) Negative mg/dL (Negative) Urine Blood (Auto) Negative (Negative) Urine Nitrite (Auto) Negative (Negative) Urine Bilirubin (Auto) Negative (Negative) Urine Urobilinogen (Auto) Normal mg/dL (Normal) Urine Leukocyte Esterase (Auto) Negative (Negative) Urine RBC 0 /HPF (0-2) Urine WBC 0 /HPF (0-4) Urine Squamous Epithelial Cells Occ /LPF Urine Bacteria 0 /HPF (0-FEW) Urine Opiates Screen Neg (NEG) Urine Methadone Screen Neg (NEG) Urine Barbiturates Neg (NEG) Urine Phencyclidine Screen Neg (NEG) Urine Amphetamine/Methamphetamine Neg (NEG) Urine Benzodiazepines Screen Neg (NEG) Urine Cocaine Screen Neg (NEG) Urine Cannabinoids Screen Neg (NEG) Urine Ethyl Alcohol Neg (NEG) Objective: Assessment: Gram neg bacteremia POA KLEBSIELLA OXYTOCA RAOULTELLA Left forearm abscess Left upper extremity cellulitis IVDU Unkempt History of alcohol dependence History of smoking Noncompliance Plan: Plan of Care Cont linezolid and Zosyn Follow-up DEBRA of Klebsiella oxytoca Patient may need Ortho evaluation May need imaging if continues to worsen Continue local wound care Continue supportive care Discussed with nursing staff AVE AQUINO MD August 14, 2021 12:07
[2021-08-14] MEDS ORDERED: OLANZapine 5 MG TABLET PO PRN (13:30)
--- NOTE | 2021-08-14 14:54 | NUR ---
pt walking the hallway, this nurse following for pt safety. When pt on his way back to his room pt attempted to swing at this nurse. Pt mumbling as he entered his room and shut the door.
--- NOTE | 2021-08-14 15:33 | PDOC ---
[facility] [facility] PROGRESS NOTE Date of Service DOS: DATE: 08/14/21 TIME: 15:30 Chief Complaint Chief Complaint Abscess left wrist with surrounding cellulitis Polysubstance abuse History of methamphetamine use History of alcohol abuse Plan: Surgical evaluation versus further imaging ID recommends continue with p.o. Zyvox and I&D Continue CIVA protocol FEN - Regular diet PPX - SCDs FULL CODE Dispo - inpatient for above History of Present Illness History of Present Illness 36-year-old male with past medical history IV drug use, who presents to the ED with complaints of abscess to left dorsal wrist. History is limited due to uncooperative patient. At the time my evaluation he is very somnolent and not answering questions. Reportedly patient took 5 mg of Ativan before coming to [facility] ED last night. Unknown length of time that his abscess has been present. In the ED he was treated with IV Zosyn and IV vancomycin. His labs on admission showed WBC 6.3, hemoglobin 11.5, hematocrit 34.1, AST 57, ALT 51. Urine toxicology showed ethyl alcohol 83. Imaging in the ED was largely unrevealing. He has an x-ray of the left arm with official read still pending. He has been admitted for further medical management. 08/13/2021 No acute events overnight. Patient seen examined bedside. AF and VSS. Nurse helped with showering this morning. Returned back to bed and sleeping. Easily arousable. Difficult to redirect. Nurse reported that patient was playing on the floor. Crawling out of bed and trying to leave the room. Patient is an elopement risk. One-time Geodon given for agitation. Patient's chart, labs, images were reviewed and discussed with RN 5/2 Patient evaluated examined at bedside. Up out of bed a lot trying to walk the floor. Still on IV antibiotics. Blood culture results positive for Klebsiella; continue current IV antibiotics. Recommendations from infectious disease reviewed. Agree further imaging could be useful. We will see options available and patient will be agreeable. Discussed with bedside RN. Vitals/I&O Vitals/I&O: Vital Signs Date Time Temp Pulse Resp B/P (MAP) Pulse Ox O2 Delivery O2 Flow Rate FiO2 08/14/21 08:00 Room Air 08/14/21 07:00 98.0 112 18 113/51 (71) 97 98.0 Physical Exam Physical Exam: GENERAL: Alert awake male in no acute distress ambulating in the hallway somewhat confused HEENT: Normocephalic and atraumatic. Anicteric. Pupils equal, reactive. Extraocular movements intact, not open his mouth for oral exam. NECK: Supple. LUNGS: Clear. HEART: S1, S2. No murmurs. ABDOMEN: Soft, nontender, nondistended. EXTREMITIES: No cyanosis, no clubbing. Left upper extremity dressing in place intact not taken down NEUROLOGIC: Alert awake male in no acute distress somewhat confused PSYCHIATRIC: Somnolent, not cooperative. General: Alert, Oriented X3, mild distress Heart: Regular rate Lungs: Clear Abdomen: Normal bowel sounds, Soft, No tenderness Extremities: Other (Left forearm abscess of about 3 x 3 cm with circumferential erythema extending up to the wrist and elbow. Full range of motion) Skin: No significant lesion Labs Labs: Laboratory Tests Test 08/13/21 23:00 Urine Collection Type Unknown Urine Color (Auto) Colorless Urine Turbidity Clear Urine pH (Auto) 6.0 (<5.0-8.0) Urine Specific Floweree 1.006 (1.000-1.030) Urine Protein (Auto) Negative mg/dL (Negative) Urine Glucose (Auto)(UA) Negative mg/dL (Negative) Urine Ketones (Auto) Negative mg/dL (Negative) Urine Blood (Auto) Negative (Negative) Urine Nitrite (Auto) Negative (Negative) Urine Bilirubin (Auto) Negative (Negative) Urine Urobilinogen (Auto) Normal mg/dL (Normal) Urine Leukocyte Esterase (Auto) Negative (Negative) Urine RBC 0 /HPF (0-2) Urine WBC 0 /HPF (0-4) Urine Squamous Epithelial Cells Occ /LPF Urine Bacteria 0 /HPF (0-FEW) Urine Opiates Screen Neg (NEG) Urine Methadone Screen Neg (NEG) Urine Barbiturates Neg (NEG) Urine Phencyclidine Screen Neg (NEG) Urine Amphetamine/Methamphetamine Neg (NEG) Urine Benzodiazepines Screen Neg (NEG) Urine Cocaine Screen Neg (NEG) Urine Cannabinoids Screen Neg (NEG) Urine Ethyl Alcohol Neg (NEG) Assessment and Plan Assessmemt and Plan Problems Medical Problems: (1) Altered mental status Status: Acute (2) Cellulitis Status: Acute Comment Review of Relevant I have reviewed the following items kavitha (where applicable) has been applied. Medications: Current Medications Medications (Trade) Dose Ordered Sig/Larry Route PRN Reason Start Time Stop Time Status Last Admin Dose Admin Ziprasidone (Geodon Im) 20 mg 1X ONCE IM 08/13/21 17:30 08/13/21 17:31 DC 08/13/21 21:35 Benztropine Mesylate (Cogentin) 1 mg BID PO 08/13/21 21:00 08/14/21 08:21 Trazodone HCl (Desyrel) 100 mg QHS PO 08/13/21 21:00 08/13/21 21:30 Olanzapine (ZyPREXA) 5 mg 1X PRN PRN PO agitation 08/14/21 13:30 08/14/21 13:49 Justifications for Admission Other Justification GEMMA WHITNEY MD August 14, 2021 15:33
--- NOTE | 2021-08-14 16:41 | NUR ---
pt refusing to have IV placed.
--- NOTE | 2021-08-14 16:45 | NUR ---
pt refusing to go back to his room, pt safety at risk as pt just took 8mg of ativan. Security called for assistance.
--- NOTE | 2021-08-14 17:28 | NUR ---
call to dr sommer, 8mg of ativan not doing much for patients agitation, verbal order given for 5mg IM haldol q6 PRN. order read back and verified.
[2021-08-14] MEDS ORDERED: HALOPERIDOL LACTATE 5 MG/ML VIAL. IM PRN (17:30)
[2021-08-14] MEDS: traZODone 100 MG TABLET. PO SCH (19:38)
[2021-08-14 19:39] VITALS: BP 102/47
--- NOTE | 2021-08-14 20:33 | NUR ---
Patient still refusing IV access. Stating in a very agitated manner "will all of these questions just end already?" I will attempt again closer to midnight when IV antibiotic is due. CIWA protocol followed, patient did take oral mediations. MD aware of no access.
--- NOTE | 2021-08-14 23:19 | NUR ---
Once again attempted IV access, patient continually yelled, "No! No! No!" Unable to even attempt IV access at this time due to combative nature and refusal, will have to non-administer IV antibiotic. For 2299 V/S [employer] able to only get BP as patient refused everything else.
[2021-08-14 23:25] VITALS: BP 123/54
[2021-08-15] MEDS: HEPARIN for SUB-Q USE 5,000 UNIT/ML VIAL. SQ SCH (06:00)
[2021-08-15] MEDS: PIPERACILLIN/TAZOBACTAM 3.375 GM in IV NORMAL SALINE 50ML 50 ML IV SCH ×2 (06:00)
[2021-08-15 07:00] VITALS: BP 107/54
[2021-08-15] MEDS: LINEZOLID 600 MG TABLET PO SCH (08:48)
[2021-08-15] MEDS: LACTOBACILLUS RHAMNOSUS GG 1 CAPSULE. PO SCH (08:48)
[2021-08-15] MEDS: BENZTROPINE MESYLATE 1 MG TABLET. PO SCH (08:48)
--- NOTE | 2021-08-15 09:46 | PDOC ---
[facility] [facility] PROGRESS NOTE Date of Service DOS: DATE: 08/15/21 TIME: 09:45 Chief Complaint Chief Complaint Abscess left wrist with surrounding cellulitis Polysubstance abuse History of methamphetamine use History of alcohol abuse Plan: Surgical evaluation versus further imaging ID recommends continue with p.o. Zyvox and I&D Continue CICT protocol FEN - Regular diet PPX - SCDs FULL CODE Dispo - inpatient for above History of Present Illness History of Present Illness 08/15/2021 Patient seen and examined Discussed with RN Chart reviewed Discussed with case management The patient is at his baseline he is up walking and eating We will go ahead and discharge on p.o. Zyvox 36-year-old male with past medical history IV drug use, who presents to the ED with complaints of abscess to left dorsal wrist. History is limited due to uncooperative patient. At the time my evaluation he is very somnolent and not a nswering questions. Reportedly patient took 5 mg of Ativan before coming to the ED last night. Unknown length of time that his abscess has been present. In the ED he was treated with IV Zosyn and IV vancomycin. His labs on admission showed WBC 6.3, hemoglobin 11.5, hematocrit 34.1, AST 57, ALT 51. Urine toxicology showed ethyl alcohol 83. Imaging in the ED was largely unrevealing. He has an x-ray of the left arm with official read still pending. He has been admitted for further medical management. 08/13/2021 No acute events overnight. Patient seen examined bedside. AF and VSS. Nurse helped with showering this morning. Returned back to bed and sleeping. Easily arousable. Difficult to redirect. Nurse reported that patient was playing on the floor. Crawling out of bed and trying to leave the room. Patient is an elopement risk. One-time Geodon given for agitation. Patient's chart, labs, images were reviewed and discussed with RN 08/14 Patient evaluated examined at bedside. Up out of bed a lot trying to walk the floor. Still on IV antibiotics. Blood culture results positive for Klebsiella; continue current IV antibiotics. Recommendations from infectious disease reviewed. Agree further imaging could be useful. We will see options available and patient will be agreeable. Discussed with bedside RN. Vitals/I&O Vitals/I&O: Vital Signs Date Time Temp Pulse Resp B/P (MAP) Pulse Ox O2 Delivery O2 Flow Rate FiO2 08/15/21 07:00 97.9 94 18 107/54 (71) 96 Room Air 97.9 I & O 08/14/21 08/14/21 08/15/21 15:00 23:00 07:00 Intake Total 250 ml 200 ml 300 ml Balance 250 ml 200 ml 300 ml Physical Exam Physical Exam: GENERAL: Alert awake male in no acute distress ambulating in the hallway somewhat confused HEENT: Normocephalic and atraumatic. Anicteric. Pupils equal, reactive. Extraocular movements intact, not open his mouth for oral exam. NECK: Supple. LUNGS: Clear. HEART: S1, S2. No murmurs. ABDOMEN: Soft, nontender, nondistended. EXTREMITIES: No cyanosis, no clubbing. Left upper extremity dressing in place intact not taken down NEUROLOGIC: Alert awake male in no acute distress somewhat confused PSYCHIATRIC: Somnolent, not cooperative. General: Alert, Oriented X3, mild distress Heart: Regular rate Lungs: Clear Abdomen: Normal bowel sounds, Soft, No tenderness Extremities: Other (Left forearm abscess of about 3 x 3 cm with circumferential erythema extending up to the wrist and elbow. Full range of motion) Skin: No significant lesion Assessment and Plan Assessmemt and Plan Problems Medical Problems: (1) Altered mental status Status: Acute (2) Cellulitis Status: Acute Discharge on p.o. Zyvox Comment Review of Relevant I have reviewed the following items kavitha (where applicable) has been applied. Medications: Current Medications Medications (Trade) Dose Ordered Sig/Larry Route PRN Reason Start Time Stop Time Status Last Admin Dose Admin Olanzapine (ZyPREXA) 5 mg 1X PRN PRN PO agitation 08/14/21 13:30 08/14/21 13:49 Haloperidol Lactate (Haldol Inj) 5 mg PRN Q6HRS PRN IM AGITATION 08/14/21 17:30 08/15/21 03:05 Justifications for Admission Other Justification NAZIA MITCHELL III DO August 15, 2021 09:46
--- NOTE | 2021-08-15 10:42 | NUR ---
Patient demanding to go home. Order entered to discharge to home. Hand written prescription for zyvox given to patient and patient educated on instruction upon discharge as well as follow up information. Patient verified address in chart is his current address and that he will be able to access house upon arrival. Wheeled to main entrance by staff and taken in cab with cab pass from nursing cab supervisor.
--- NOTE | 2021-08-15 20:31 | DS ---
DATE OF DISCHARGE: 08/15/2021 ADMISSION DIAGNOSIS: Left wrist abscess secondary to IV methamphetamine abuse. DISCHARGE DIAGNOSES: 1. Resolving left wrist abscess. 2. History of alcohol issues. 3. History of polysubstance abuse. HOSPITAL COURSE: The patient is a pleasant middle-aged male who presented with a left wrist abscess. He was admitted. We have consulted Infectious Disease. We offered to drain the abscess, but he refused. Over the past few days, he has been doing better. I saw and examined this morning, he is up walking. He is eating. He wants to go home. I am going to discharge on p.o. Zyvox. DISPOSITION: Home. ACTIVITY: As tolerated. DIET: Low sodium. DISCHARGE MEDICATIONS: Please see the MRAD. Zyvox 600 p.o. b.i.d. TOTAL TIME: [address]: Yi TID: [id number]
== END 2021-08-15 10:33 | disposition home or self-care (01) | DRG 602 ==
LOC: ER 17:00 → ED HOLD 08-12 00:37 → 4 NORTH 08-12 04:50 → 6 SOUTH 08-12 04:52 → 4 NORTH 08-12 17:30
PROVIDERS: ADMIT Internal Medicine; ATTEND Internal Medicine
DX: L02.414 Cutaneous abscess of left upper limb (principal); G92.9 Unspecified toxic encephalopathy; L03.114 Cellulitis of left upper limb; Z91.19 Patient's noncompliance with other medical treatment and regimen; B96.89 Other specified bacterial agents as the cause of diseases classified elsewhere; F15.10 Other stimulant abuse, uncomplicated; F17.210 Nicotine dependence, cigarettes, uncomplicated; Y90.4 Blood alcohol level of 80-99 mg/100 ml; F10.20 Alcohol dependence, uncomplicated; F19.10 Other psychoactive substance abuse, uncomplicated
CPT/HCPCS: 36415; 70450; 80053; 80307; 81001; 82962; 83605; 83735; 84484; 85007; 85025; 87040; 87077; 87186; 93970; G0480; J1630; J1644; J2060; J2543; J3486; 73590-50; G0378